=== PATIENT | male | born 1965 | race Caucasian/White ===

== ENCOUNTER 2022-01-04 10:39 | Day surgery (SDC) | payer MEDICAID ==
[2021-12-30 11:28] LABS: CLARITY,URINE CLEAR (Clear); COLOR,URINE YELLOW (Yellow); GLUCOSE, URINE NEGATIVE (Neg); KETONES,URINE NEGATIVE (Neg); LEUKOCYTE ESTERASE ,URINE NEGATIVE (Neg); NITRITES, URINE NEGATIVE (Neg); OCCULT BLOOD,URINE NEGATIVE (Neg); PH,URINE 6.5 (4.8-8.0); PROTEIN,URINE NEGATIVE (Neg); UROBILINOGEN,URINE 0.2 E.U/dL (0.2-1.0)
[2021-12-30 11:32] LABS: UA COLLECTION TYPE CLN CATCH MIDSTREAM
[2021-12-30 11:34] LABS: BASOPHILS % (AUTO) 0.7 % (0-1); EOSINOPHILS # (AUTO) 0.3 X10'3 (0-0.9); EOSINOPHILS % (AUTO) 5.1 % (0-6); LYMPHOCYTES # (AUTO) 2.1 X10'3 (1.1-4.8); LYMPHOCYTES % (AUTO) 34.6 % (21-51); MEAN CORPUSCULAR HEMOGLOBIN 33.8 PG (27.0-31.0); MEAN CORPUSCULAR HGB CONC 34.8 g/dL (33.0-36.5); MEAN CORPUSCULAR VOLUME 97.3 FL (78-98); MEAN PLATELET VOLUME 8.2 FL (7.4-10.4); MONOCYTES # (AUTO) 0.6 X10'3 (0-0.9); MONOCYTES % (AUTO) 10.7 % (2-12); NEUTROPHILS # (AUTO) 2.9 X10'3 (1.8-7.7); NEUTROPHILS % (AUTO) 48.9 % (42-75); PRE OP HEMATOCRIT 44.6 % (42.0-52.0); PRE OP HEMOGLOBIN 15.5 g/dL (14.0-17.9); PRE OP PLATELET COUNT 246 X10'3 (140-440); RED BLOOD COUNT 4.58 X10'6 (4.70-6.10); RED CELL DISTRIBUTION WIDTH 13.8 % (11.5-14.5)
[2021-12-30 11:37] LABS: ALBUMIN 3.6 G/DL (3.4-5.0); ALKALINE PHOSPHATASE 71 IU/L (46-116); BLOOD UREA NITROGEN 27 MG/DL (7-18); BUN/CREATININE RATIO 26.5 (5.4-32.0); CHLORIDE 105 MMOL/L (99-107); CREATININE 1.02 MG/DL (0.60-1.10); PRE OP ALT 57 U/L (30-65); PRE OP ANION GAP 3 (8-16); PRE OP AST 35 U/L (10-37); PRE OP BILIRUB, TOTAL 0.3 MG/DL (0.0-1.0); PRE OP GLUCOSE 93 MG/DL (70-104); PRE OP POTASSIUM 4.5 MMOL/L (3.4-5.1); PRE OP SODIUM 138 MMOL/L (135-145); TOTAL CARBON DIOXIDE 30.5 MMOL/L (24-32); TOTAL PROTEIN 7.3 G/DL (6.4-8.2); eGFR 75 ML/MIN
[2022-01-04] VITALS (10 sets, daily range): BP systolic 121–139; BP diastolic 70–95
[~2022-01-04] VITALS: Ht 177.8 cm; Wt 81.4 kg
[~2022-01-04 10:39] MED LIST: ALBU18HF2 INH; BACL10TA2 PO; DICL-182 PO; SERT-433 PO; ceFAZolin inj. 2,000 MG in dextrose 5%-water 100 ML IV ONE; famotidine 20mg tablet PO ONE; ringers solution, lacted 1,000 ML IV SCH
--- NOTE | 2022-01-04 12:52 | NUR ---
STATES LAYING DOWN PATIENT HAS NO PAIN BUT UPRIGHT HE IS USUALLY A 06/28 2' OLD PELVIC SURGERY Addendum: 01/04/22 at 1305 by Bruno Hutchins RN, RN Amended: Links added.
[2022-01-04] MEDS ORDERED: ringers solution, lacted 1,000 ML IV SCH (15:35)
[2022-01-04] MEDS ORDERED: morphine 4 MG/ML inj SYRINge IV PRN (15:35)
[2022-01-04] MEDS ORDERED: ondansetron/PF 4mg/2ml inj IV PRN (15:35)
[2022-01-04] MEDS ORDERED: morphine 2 MG/ML inj. syringe IV PRN (15:35)
[2022-01-04] MEDS ORDERED: proCHLORperazine 10 MG/2 ml inj IV PRN (15:35)
[2022-01-04] MEDS ORDERED: meperidine/PF 25mg/ml syringe IV PRN ×3 (15:35)
[2022-01-04] MEDS ORDERED: fentaNYL /PF 50mcg/ml 5ml ampule ONE (16:01)
[2022-01-04] MEDS ORDERED: midazolam 1 mg/ML 2ml injection ONE (16:01)
[2022-01-04] MEDS ORDERED: propofol inj 20 ML IV ONE (16:02)
[2022-01-04] MEDS ORDERED: rocuronium 10mg/ml inj IV ONE (16:02)
[2022-01-04] MEDS ORDERED: BUPIVAcaine/PF 5 mg/ml 10ml ONE (16:58)
[2022-01-04] MEDS ORDERED: ondansetron/PF 4mg/2ml inj ONE (17:50)
[2022-01-04] MEDS ORDERED: neostigmine methylsulfate 1 MG/ML 10ml vial ONE (17:50)
[2022-01-04] MEDS ORDERED: glycopyrrolate 0.2mg/ml inj ONE (17:50)
[2022-01-04] MEDS ORDERED: dexamethasone sod phosphate 4mg/ml inj. ONE (17:51)
--- NOTE | 2022-01-04 18:06 | NUR ---
Received from OR via , accompanied by Anesthesiologist TIFFANIE and OR NURSE report given by Anesthesiolgist. PT IS DROWSY YET RESPONDS TO VERBAL COMMANDS. PT DENIES PAIN OR DISCOMFORT. 20G IN UPPER LEFT ARM. 02 AT 10LPM WITH MASK. VSS Addendum: 01/04/22 at 1840 by Dipti Holland RN Amended: Links added.
--- NOTE | 2022-01-04 19:26 | NUR ---
ALL DISCHARGE CRITERIA HAS BEEN MET. VSS, PAIN AT A TOLERABLE LEVEL, VOIDING AND ABLE TO SAFELY AMBULATE AND TRANSFER SELF. IV TAKEN OUT WITHOUT ANY COMPLICATIONS. ALL DISCHARGE INSTRUCTIONS COVERED WITH PATIENT AND SPOUSE AND ALL QUESTIONS ANSWERED. PATIENT TAKEN OUT VIA WHEELCHAIR TO PERSONAL VEHICLE WHERE FAMILY/FRIEND DROVE PATIENT HOME. Addendum: 01/04/22 at 1944 by Dipti Holland RN Amended: Links added.
== END 2022-01-04 19:26 | disposition home or self-care (01) ==
LOC: PAS 10:39
PROVIDERS: ATTEND Surgery
DX: K40.20 Bilateral inguinal hernia, without obstruction or gangrene, not specified as recurrent (principal); J44.9 Chronic obstructive pulmonary disease, unspecified; F32.9 Major depressive disorder, single episode, unspecified; G89.29 Other chronic pain; Z79.899 Other long term (current) drug therapy; Z98.890 Other specified postprocedural states; Z87.891 Personal history of nicotine dependence
CPT/HCPCS: 36415; 49650; 80053; 81003; 82948; 85025; 93005; A6258; C1758; C1781; J0690; J1100; J2175; J2250; J2270; J2405; J2704; J2710; J3010; J3490; J7030; J7060; J7120; S2900; Z7506; Z7508; Z7512; A4215; A4618